=== PATIENT | male | born 2000 | race Caucasian/White ===

== ENCOUNTER 2023-06-10 09:56 | Observation (INO) | payer SELFPAY ==
[~2023-06-10] VITALS: Ht 177.8 cm; Wt 104.5 kg
[2023-06-10] VITALS (7 sets, daily range): BP systolic 108–172; BP diastolic 64–83; PULSE 103–119; TEMP 98.1–98.2
[~2023-06-10 09:56] MED LIST: AMOXICILLIN 8751 TAB PO
[2023-06-10] MEDS ORDERED: LORazepam 1 MG TAB PO PRN ×2 (12:15→13:30)
[2023-06-10] MEDS ORDERED: LORazepam 2 MG/ML 1 ML VIAL IV PRN ×2 (12:15→13:30)
[2023-06-10] MEDS ORDERED: Mag/Al Hydrox/Simeth Susp 30 ML CUP PO PRN (12:15)
[2023-06-10] MEDS ORDERED: Folic Acid 1 MG TAB PO SCH (12:16)
[2023-06-10] MEDS ORDERED: Multivitamin TAB PO SCH ×2 (12:16→17:00)
[2023-06-10] MEDS ORDERED: Thiamine 100 MG TAB PO SCH ×2 (12:22→21:00)
[2023-06-10 12:29] LABS: BASO # 0.1 K/mm3 (0.0-0.2); BASO % 0.9 % (0.0-2.0); EOS # 0.1 K/mm3 (0.0-0.7); EOS % 1.2 % (0.0-4.0); LYMPH # 2.6 K/mm3 (1.2-3.4); LYMPH % 22.2 % (20.0-51.0); MEAN CELL VOLUME 90 fl (80.0-100.0); MEAN CORPUSCULAR HGB CONC 36 g/dl (33.0-37.0); MEAN PLATELET VOLUME 10.4 fl (7.4-10.4); MONO # 0.9 K/mm3 (0.1-0.6); MONO % 7.4 % (1.7-9.3); PLATELET COUNT 320 K/mm3 (130-400); PROTHROMBIN TIME 10.7 SECONDS (9.7-12.8); RED BLOOD COUNT 5.79 M/mm3 (4.20-5.60); REDCELL DISTRIBUTION WIDTH-CV 12.5 % (11.5-14.5)
[2023-06-10 12:30] LABS: HEMATOCRIT 52.3 % (42.0-52.0); HEMOGLOBIN 18.8 g/dl (13.5-18.0); MEAN CORPUSCULAR HEMOGLOBIN 32 pg (27-31)
[2023-06-10 12:32] LABS: PARTIAL THROMBOPLASTIN TIME 26.4 SECONDS (26.0-37.0)
[2023-06-10 12:40] LABS: ALBUMIN 4.9 gm/dL (3.5-5.0); BILIRUBIN,TOTAL 1.1 mg/dL (0.2-1.2); CALCIUM 10.4 mg/dL (8.4-10.2); CREATININE, serum 0.89 mg/dL (0.72-1.25); MAGNESIUM 2.1 mg/dL (1.6-2.6); POTASSIUM 4.2 mmol/L (3.5-4.5); TOTAL PROTEIN 8.3 gm/dL (6.2-8.1)
[2023-06-10 12:41] LABS: LIPASE 24 U/L (8-78)
[2023-06-10 12:43] LABS: ALCOHOL(ethanol),MEDICAL < 10 mg/dL (0-10)
[2023-06-10] MEDS ORDERED: Ondansetron 4 MG/2 ML VIAL IV PRN (13:30)
[2023-06-10] MEDS ORDERED: Polyethylene Glycol 3350 17 GM PDS PO PRN (13:30)
[2023-06-10] MEDS ORDERED: Acetaminophen 325 MG TAB PO PRN (13:30)
[2023-06-10] MEDS ORDERED: Docusate Sodium 100 MG CAP PO PRN (13:30)
[2023-06-10] MEDS ORDERED: Folic Acid 1 MG,Thiamine 200 MG in NS 1,000 ML IV ONE (13:30)
[2023-06-10] MEDS ORDERED: NS 1,000 ML IV SCH (13:30)
--- NOTE | 2023-06-10 19:30 | NUR ---
PATIENT RESTING IN BED WITH TV ON WITH MOTHER AT BEDSIDE WITH NO ACUTE DISTRESS NOTED. PATIENT ON ROOM AIR. TELEMETRY INTACT. ASSESSMENT COMPLETED. PATIENT TOLERATED WELL. PATIENT DENIES ANY NEEDS AT THIS TIME. BED IN LOW POSITION WITH WHEELS LOCKED WITH RAILS UP X2 AND CALL LIGHT WITHIN REACH.
--- NOTE | 2023-06-10 21:25 | NUR ---
PATIENT RESTING IN BED WITH TV ON WITH NO FAMILY PRESENT WITH NO ACUTE DISTRESS NOTED. PATIENT ON ROOM AIR. NS INFUSING INTO RIGHT AC WITH NO COMPLICATIONS NOTED. TELEMTRY INTACT. MEDICATION ADMINISTRATION COMPLETED AT THIS TIME. PATIENT TOLERATED WELL. ALL NEEDS MET. BED IN LOW POSITION WITH WHEELS LOCKED WITH RAILS UP X2 AND CALL LIGHT WITHIN REACH.
--- NOTE | 2023-06-10 23:28 | NUR ---
HOSPITALIST TAMMY CALLED FOR PATIENT C/O WAKING UP EVERY 20 MINUTES WHILE TRYING TO SLEEP. ORDER RECIEVED FOR MELATONIN 6 MG PO EVERY EVENING PRN FOR INSOMNIA. ORDER READ BACK AND VERIFIED.
[2023-06-10] MEDS ORDERED: Melatonin 3 MG TAB PO PRN (23:30)
[2023-06-11] VITALS (17 sets, daily range): BP systolic 113–159; BP diastolic 50–83; PULSE 76–127; TEMP 97.6–98.2
[2023-06-11 07:02] LABS: COLLECTION METHOD CLEAN CATCH
[2023-06-11 07:13] LABS: BASO # 0.1 K/mm3 (0.0-0.2); EOS # 0.2 K/mm3 (0.0-0.7); EOS % 2.9 % (0.0-4.0); GRAN # 4.3 K/mm3 (1.4-6.5); GRAN % 58.7 % (42.2-75.2); HEMATOCRIT 43.4 % (42.0-52.0); LYMPH # 2.1 K/mm3 (1.2-3.4); LYMPH % 28.5 % (20.0-51.0); MEAN CELL VOLUME 92 fl (80.0-100.0); MEAN CORPUSCULAR HGB CONC 35 g/dl (33.0-37.0); MEAN PLATELET VOLUME 10.2 fl (7.4-10.4); MONO # 0.6 K/mm3 (0.1-0.6); MONO % 8.8 % (1.7-9.3); RED BLOOD COUNT 4.72 M/mm3 (4.20-5.60); REDCELL DISTRIBUTION WIDTH-CV 12.6 % (11.5-14.5)
[2023-06-11 07:15] LABS: TRICYCLIC ANTIDEPRESS URINE NEGATIVE (NEGATIVE)
[2023-06-11 07:22] LABS: HEMOGLOBIN 15.1 g/dl (13.5-18.0); MEAN CORPUSCULAR HEMOGLOBIN 32 pg (27-31); PLATELET COUNT 219 K/mm3 (130-400)
[2023-06-11 07:33] LABS: PH 6.5 (5.0-8.5); URINE APPEARANCE Clear (CLEAR/HAZY); URINE BLOOD Negative (NEGATIVE); URINE COLOR Yellow (YELLOW); URINE GLUCOSE Negative (NEGATIVE); URINE KETONE Negative (NEGATIVE); URINE NITRATE Negative (NEGATIVE); URINE PROTEIN(semi-quant) Negative (NEGATIVE); URINE UROBILINOGEN 0.2 E.U/dL (0.2-1.0)
[2023-06-11 07:34] LABS: SQUAMOUS EPITHELIAL 0-2 /hpf (0-10); URINE RBC None Seen /hpf (0-2); URINE WBC None Seen /hpf (0-2)
[2023-06-11 07:34] LABS: ALBUMIN 3.6 gm/dL (3.5-5.0); BILIRUBIN,TOTAL 1.1 mg/dL (0.2-1.2); CALCIUM 8.7 mg/dL (8.4-10.2); CREATININE, serum 0.82 mg/dL (0.72-1.25); MAGNESIUM 1.8 mg/dL (1.6-2.6); TOTAL PROTEIN 5.9 gm/dL (6.2-8.1)
--- NOTE | 2023-06-11 08:00 | NUR ---
PATIENT AWAKE AND ALERT, RESTING IN BED. PATIENT DENIES ANY NEEDS OR COMPLAINTS AT THIS TIME. CALL LIGHT WITHIN REACH
[2023-06-11] MEDS ORDERED: Folic Acid 1 MG TAB PO SCH (09:00)
--- NOTE | 2023-06-11 16:00 | NUR ---
PATIENT AWAKE AND ALERT, RESTING IN BED. PATIENT DENIES ANY NEEDS OR COMPLAINTS AT THIS TIME. HIS MOM IS AT HIS BEDSIDE. CALL LIGHT WTIHIN REACH.
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
[2023-06-12] VITALS (9 sets, daily range): BP systolic 123–158; BP diastolic 76–98; PULSE 73–88; TEMP 97.4–98.2
[2023-06-12 07:58] LABS: BASO # 0.1 K/mm3 (0.0-0.2); BASO % 0.9 % (0.0-2.0); EOS # 0.2 K/mm3 (0.0-0.7); EOS % 2.2 % (0.0-4.0); GRAN # 4.7 K/mm3 (1.4-6.5); GRAN % 62.4 % (42.2-75.2); HEMATOCRIT 44.3 % (42.0-52.0); HEMOGLOBIN 15.7 g/dl (13.5-18.0); LYMPH # 2.1 K/mm3 (1.2-3.4); LYMPH % 27.1 % (20.0-51.0); MEAN CELL VOLUME 91 fl (80.0-100.0); MEAN CORPUSCULAR HEMOGLOBIN 32 pg (27-31); MEAN CORPUSCULAR HGB CONC 35 g/dl (33.0-37.0); MEAN PLATELET VOLUME 10.4 fl (7.4-10.4); MONO # 0.5 K/mm3 (0.1-0.6); PLATELET COUNT 214 K/mm3 (130-400); RED BLOOD COUNT 4.88 M/mm3 (4.20-5.60); REDCELL DISTRIBUTION WIDTH-CV 12.8 % (11.5-14.5)
[2023-06-12 08:21] LABS: ALBUMIN 3.7 gm/dL (3.5-5.0); BILIRUBIN,TOTAL 0.9 mg/dL (0.2-1.2); CALCIUM 9.1 mg/dL (8.4-10.2); CREATININE, serum 0.81 mg/dL (0.72-1.25); MAGNESIUM 1.9 mg/dL (1.6-2.6); TOTAL PROTEIN 6.2 gm/dL (6.2-8.1)
[2023-06-12] MEDS ORDERED: THIAMINE 1100 MG/TAB PO (10:57)
[2023-06-12] MEDS ORDERED: MULTI VITAMINS1 TAB PO (10:58)
--- NOTE | 2023-06-12 11:25 | NUR ---
SCHAFFER DISCONTINUED
--- NOTE | 2023-06-12 11:30 | NUR ---
RN REMOVED PATIENTS TELE AND IV. PATIENT REQUESTED TO SHOWER. LEIGH GIVEN SHOWER SUPPLIIES AND INSTRUCTED TO INFORM STAFF WHEN HE IS FINISHED SO HE CAN SIGN PAPER WORK AND SPEAK WITH SOCIAL WORK BEFORE LEAVEIG. LEIGH VERBALIZED UNDERSTANDING.
--- NOTE | 2023-06-12 11:52 | NUR ---
WHEN SOCIALWORK ENTERED PATIENTS ROOM, PATIENT WAS NO WHERE TO BE FOUND. SECURITY INFORMED. RN AND PCT SEARCHED THIRD FLOOR AND 2ND FLOOR, ER ENTRANCE. PATINET WAS NOT FOUND. RN UNABLE TO GIVE DISCHARGE INSTRUCTIONS.
--- NOTE | 2023-06-12 13:03 | NUR ---
Gear Tooth Grinding Machine Operator spoke with Hospitalist who advised patient needs drug/alcohol resources. SW went to patient's room and discovered it empty. SW notified RN who discovered patient left without notifying her. Patient had been discharged. Discharge Plan: Home
--- NOTE | 2023-06-12 13:46 | NUR ---
Data: Patient accepted visit from Land Management Supervisor. Patient was dressed except for his shoes; told Land Management Supervisor he was going to [place] when he was discharged. Patient spoke of being close to his daughter and of finding a good AA program when he got "back there." Assessment: Patient was excited and nervous about leaving the hospital. Plan of Care: Land Management Supervisor prayed for safe travels for Patient and for his journey to sobriety. After visit, was at Nurses' station when the Life Insurance Salesperson discovered that the Patient had left the hospital without the Life Insurance Salesperson or Nurses' knowledge.
== END 2023-06-12 13:00 | disposition home or self-care (01) ==
LOC: COL.ER 09:56 → MEDICAL 13:18
PROVIDERS: Emergency Medicine; ADMIT Hospitalist
DX: R25.1 Tremor, unspecified (principal); R61 Generalized hyperhidrosis; H53.9 Unspecified visual disturbance; F10.139 Alcohol abuse with withdrawal, unspecified; F19.10 Other psychoactive substance abuse, uncomplicated; F17.210 Nicotine dependence, cigarettes, uncomplicated
CPT/HCPCS: G0378; J1650; J2060; J3411; J7030